=== PATIENT | female | born 1975 | race Caucasian/White ===

== ENCOUNTER 2017-10-18 14:05 | Inpatient (IN) ==
[2017-10-18] MEDS ORDERED: Ondansetron 4 MG/2 ML VIAL IVP PRN (14:43)
[2017-10-18] MEDS ORDERED: Naloxone 0.4 MG/ML INJ IVP PRN (14:43)
[2017-10-18] MEDS ORDERED: *HR* Nalbuphine 20 MG/ML AMPUL IVP PRN (14:43)
[2017-10-18] MEDS ORDERED: Famotidine 20 MG/2 ML VIAL IVP PRN (14:43)
[2017-10-18] MEDS ORDERED: Ringers Solution, Lactated 1,000 ML IVC SCH (14:45)
[2017-10-18 15:22] LABS: Basophils % 0.4 %; Eosinophils % 0.6 %; Hemoglobin 11.5 g/dL (11.5-15.4); Immature Granulocytes % 0.3 % (0-4); Lymphocytes # 1.5 K/mcL (0.6-4.6); Lymphocytes % 21.6 %; Mean Corpuscular HGB Conc 32.9 g/dL (31.6-35.5); Mean Corpuscular Hemoglobin 28.3 pg (28.0-33.3); Mean Corpuscular Volume 86.2 fL (83.0-100.0); Mean Platelet Volume 10.6 fL (9.4-12.4); Monocytes # 0.5 K/mcL (0.0-1.3); Monocytes % 6.8 %; Neutrophils # 4.9 K/mcL (1.6-8.9); Platelet Count 236 K/mcL (140-400); Red Blood Count 4.06 M/mcL (3.82-4.97); Red Cell Distribution Width 14.1 % (11.5-14.5); Segmented Neutrophils % 70.3 %
[2017-10-18 15:39] LABS: Amphetamine Screen,Urine Negative ng/mL (Cutoff=1000); Barbiturate Screen,Urine Negative ng/mL (Cutoff=200); Benzodiazepines Screen,Urine Negative ng/mL (Cutoff=200); Cannabinoid Screen,Urine Negative ng/mL (Cutoff = 50); Cocaine Screen,Urine Negative ng/mL (Cutoff= 300); Opiate Screen,Urine Negative ng/mL (Cutoff=300); Phencyclidine Screen,Urine Negative ng/mL (Cutoff=25)
[2017-10-18] MEDS ORDERED: miSOPROStol 25 MCG TABLET PO PRN (16:32)
--- NOTE | 2017-10-18 19:17 | OB/GYN History & Physical ---
Date of Encounter: 10/18/17 Time of Encounter: 18:36 Assessment and Plan (1) 38 weeks gestation of Current visit: Yes Status: Acute (2) IUGR (intrauterine growth restriction) Current visit: Yes Status: Acute Induction of labor with cytoec and cervical cornejo Cornejo placed at 1915. tracing reviewed with Dr. Avendano at 1900 Repositioning and starting of IV fluids VE /-2 (3) Obesity affecting in third trimester Current visit: Yes Status: Acute History of Present Illness Chief complaint: Induction of labor HPI: Ms. Evangelista is a 42 year old female admitted for induction of labor due to IUGR and abnormal dopplers. Obstetrical history of maternal obesity and AMA, decreased ability to move left knee, but has complete hip flexion. Pt desires BPS if C/S needed. Labs: A+, Rubella and varicella immune, GBS negative, all other serologies negative. Past Med Surg Social Fam HX - Past Medical History Psychiatric history: no psych history - Past Surgical History Surgical History: other - Social History Smoking Status: Never smoker Smokeless Tobacco Status: No Alcohol use: none Drug use: none - Family History Mother Age: 65 Living Status: Still Living Hx Family Cardiac Disorders: No Hx Family Respiratory Disorders: No Hx Family Cancer: No Hx Family GI Disorders: No Hx Family Genitourinary Disorders: No Hx Family Endocrine Disorder: No Hx Family Musculoskeletal Disorders: No Hx Family Neuromuscular Disorders: No Hx Family Neurologic Disorders: No Hx Family HEENT Disorders: No Hx Family Autoimmune Disorders: No Hx Family Reproductive Disorders: No Hx Family Psychosocial Disorders: No Hx Family Medical Disorders: No Obstetrical History - Pregnancies : 3 Para: 2 Term: 2 : 0 Ab's: 0 Livin Medications and Allergies Vitamins 1 / PO DAILY 10/18/17 [History] 3 Allergy/AdvReac Type Severity Reaction Status Date / Time alcohol Allergy Anaphylaxis Verified 10/18/17 16:31 ampicillin Allergy Anaphylaxis Verified 10/18/17 16:31 Penicillins Allergy Anaphylaxis Verified 10/18/17 16:31 Exam - Constitutional Constitutional: well developed, well nourished, no acute distress, obese - Neck Neck exam: full ROM - Lungs Respiratory exam: CTAB - Abdomen Abdomen: Present: gravid, non tender - Vagina Vagina: Present: normal moisture - Cervix Dilation: 1 Effacement: 70 Station: -2 - Uterus Uterus exam: Present: normal size, normal contour Results Result Diagrams: 10/18/17 15:10 Abnormal lab results Hct 35.0 % (35.3-44.9) L 10/18/17 15:10 All other labs normal. - VTE Reasons for not Prescribing Prophylaxis: Treatment not Indicated - Low risk for VTE
[2017-10-18] MEDS ORDERED: Oxytocin 20 units/ LR 1000 mL 20 UNIT/1,000 ML BAG IVC SCH (20:30)
--- NOTE | 2017-10-18 20:51 | Anesthesia Evaluation PreOp ---
Date of Encounter: 10/18/17 Time of Encounter: 20:49 - Past History Planned Operation: ELIAS Cardiac History: Denies any Significant Hx Pulmonary History: Denies Any Significant HX INFORMATION SYSTEMS SECURITY DEVELOPER History: Other (in remission since ) Other Medical History: Denies Any Significant HX Anesthesia History: No Prior Anesthetic Complications (denies personal h/o GA or NA complications) : Yes Test: Positive Alcohol Use: none Drug use: none Medications and Allergies Vitamins 1 / PO DAILY 10/18/17 [History] 3 Allergy/AdvReac Type Severity Reaction Status Date / Time alcohol Allergy Anaphylaxis Verified 10/18/17 16:31 ampicillin Allergy Anaphylaxis Verified 10/18/17 16:31 Penicillins Allergy Anaphylaxis Verified 10/18/17 16:31 - Meds/Allergy Pre-op Review Medications Reviewed: Yes Allergies Reviewed: Yes Beta Blockers on Current Med List: No Anesthesia Results - Labs 10/18/17 15:10 Anesthesia Exam 139/81, HR 71, RR 18 Height: 1.7m Weight: 123kg NPO (# of Hours): >8hrs Pain Scale: 3 Pain Scale Used: Numeric (1 - 10) - HEENT Pupil (Motor): Pupils equal Mallampati: II Teeth: Normal Oral Opening: Greater than 3 - INFORMATION SYSTEMS SECURITY DEVELOPER LOC: Oriented INFORMATION SYSTEMS SECURITY DEVELOPER Motor: Normal RUE, Normal LUE, Normal RLE, Normal LLE, Normal Face INFORMATION SYSTEMS SECURITY DEVELOPER Sensory: Normal: RUE, LUE, RLE, LLE, Face - Cardiac Rhythm: Regular Murmur: None JVD: No Carotid Bruit: No - Pulmonary Breath Sounds: bilateral Clear Respiratory Effort: Symmetrical Anesthesia Assess/Plan ASA Score: 3 (BMI > 40) Modified Russell Scale for Level of Consciousness: Cooperative, oriented, and tranquil Anesthetic Plan: Regional Autologous Blood: No Monitoring Plan: Standard Monitors Recovery Plan: Other
[2017-10-18] MEDS ORDERED: Bupivacaine-MPF 0.25% 10 ML VIAL EP ONE (20:57)
[2017-10-18] MEDS ORDERED: *HR* FentaNYL (PF) 100 MCG/2 ML VIAL EP ONE (20:57)
[2017-10-18] MEDS ORDERED: Epidural Premix (fent/bupiv) 110 ML EP SCH (21:00)
[2017-10-18] MEDS ORDERED: Bupivacaine-MPF 0.25% 10 ML VIAL ONE (21:40)
[2017-10-18] MEDS ORDERED: Epidural Premix (fent/bupiv) 110 ML EP ONE (21:41)
--- NOTE | 2017-10-18 22:15 | Anesthesia Procedures ---
Date of Encounter: 10/18/17 Time of Encounter: 22:13 Procedures: Anesthesia - Epidural/Spinal Patient ID/Chart reviewed: Yes Patient examined: Yes OB Eval: Gestational age: 38 weeks 4 days OB Eval: : 3 OB Eval: Hx Para: 2 OB Eval: Dilated at (cm): 1 OB Eval: Contractions: Non-stressed pattern Consent Obtained: No Supplemental Oxygen: None/Room Air Site Prep: Aseptic Technique, Sterile prep and drape, Povidone-Iodine 1% Patient position: upright Local Anesthetic: Lidocaine 1% Amount of Local Anesthetic used: 3 Touhy Needle Gauge: 18 Touhy Needle Depth (cm): 9 Catheter Depth at Skin (cm): 14 Test Dose (1.5% Lido + Epi): Volume given (mls): 5 Test Dose Result: Negative Loading Dose: 0.25% Marcaine (mls): 5 Loading Dose: Fentanyl (mcg): 100 Loading Dose Administered: Thru Catheter Infusion Med: 0.125% Bupivacaine w/ 2 mcg/ml Fentanyl Infusion Rate (mls/hr): 14 (w/ demand bolus of 5mL q20min) Catheter Secured in Place: Tegaderm, Tape Interspace Used: L3-L4 Loss of Resistance (SANTOSH): Yes Blood: No CSF: No Paresthesia: No Procedure: successful on 1st attempt Vitals + FHT's: please see Natalie MACIAS's electronic records for VS entry
--- NOTE | 2017-10-18 22:17 | OB Labor Progress Note ---
Date of Encounter: 10/18/17 Time of Encounter: 22:09 Labor Progress Note - Subjective Subjective: Pt uncomfortable with contractions, getting epidural - Vital Signs Vital Signs: 130/69 - Cervix Cervix: cervical cornejo remains in place - Heart Tones Heart Tones: 125/moderate/+accels/- decels - Nul[place] Nulato: q2-4 - Plan Plan: Continue pitocin per policy Cervical cornejo remains in place Anticipate
[2017-10-19] MEDS ORDERED: EPHEDrine 50 MG/ML VIAL ONE (01:12)
[2017-10-19] MEDS ORDERED: *HR* Oxytocin 10 UNIT/ML VIAL IM ONE ×2 (01:12→01:53)
[2017-10-19] MEDS ORDERED: *HR* Succinylcholine 200 MG/10 ML VIAL IVP ONE (01:29)
[2017-10-19] MEDS ORDERED: Dexamethasone 4 MG/ML VIAL ONE (01:29)
[2017-10-19] MEDS ORDERED: *HR* Phenylephrine 10 MG/ML VIAL ONE (01:29)
[2017-10-19] MEDS ORDERED: Chloroprocaine/PF 20 ML VIAL INFILT ONE (01:29)
[2017-10-19] MEDS ORDERED: Ondansetron 4 MG/2 ML VIAL ONE (01:29)
[2017-10-19] MEDS ORDERED: *HR* FentaNYL (PF) 100 MCG/2 ML VIAL ONE (01:29)
[2017-10-19] MEDS ORDERED: *HR* Propofol 200 MG/20 ML VIAL IVP ONE (01:29)
[2017-10-19] MEDS ORDERED: Morphine Sulfate/PF 5mg/10mL Vial ONE ×2 (01:29→02:08)
[2017-10-19] MEDS ORDERED: Ringers Solution, Lactated 1,000 ML ONE ×2 (01:30→23:24)
[2017-10-19] MEDS ORDERED: *HR* HYDROmorphone (PF) 1 MG/ML SYRINGE IVP PRN (01:46)
[2017-10-19] MEDS ORDERED: Naloxone 0.4 MG/ML INJ IVP PRN (01:46)
[2017-10-19] MEDS ORDERED: Ondansetron 4 MG/2 ML VIAL IVP PRN ×2 (01:46→04:51)
[2017-10-19] MEDS ORDERED: Clindamycin 900 MG/50 ML 900 MG/50 ML IV.SOLN IVPB ONE (02:00)
--- NOTE | 2017-10-19 02:11 | OB Labor Progress Note ---
Date of Encounter: 10/19/17 Time of Encounter: 00:40 Labor Progress Note - Subjective Subjective: Pt resting in bed with epidural. Called to room by RN stating cervical cornejo just came out and was requesting internals to be placed to allow patient comfortable positioning to allow for monitoring. - Cervix Cervix: / - Heart Tones Heart Tones: found in decel at 46 when FSE placed - Interventions Interventions: In room patient repositioned. Michael something suspicious on exam in vagina, a loop of tissue, called for speculum, RN unable to find heart tones, FSE applied heart tones 46. Decision made to move to OR for evaluation. called to OR.
--- NOTE | 2017-10-19 02:19 | OB/GYN Procedure Note ---
Section - Date of procedure: 10/19/17 Preop diagnosis: category 3 FHT tracing, desires sterilization, other (Funic cord) Post-op diagnosis: same Procedure: section, primary low transverse, bilateral tubal ligation Surgeon: Marion Avendano Estimated blood loss (cc): 400 Was there an seed laboratory assistant present: No Anesthesiologist: Carmen Leavitt Fork Operator: Ander Carpenter Anesthesia Type: General Disposition: L&D Recovery Room Specimens: Placenta, Cord segment, Right tube segment, Left tube segment - (s) Infant A Infant Delivery Date: 10/19/17 Delivery Time: 00:58 Presentation: vertex (funic presentation) Position: LOT Gender: Male Viability: Viable Pounds: 5 Ounces: 4 at 1 minute: 8 at 5 minutes: 9 Placenta: spontaneous, uterine exploration Cord: nuchal cord, 3 umbilical vessels, delivered through nuchal - Narrative Narrative: The patient was taken to the operating room and prepped with Betadine and draped in the usual sterile fashion. Emergency timeout was completed. She was given general anesthesia after it was determined that the epidural bolus was not adequate for abdominal surgery. After skin testing and prior to the general anesthesia having taken effect, the skin was injected with 1% lidocaine with epinephrine 20 mL prior to the initial skin incision. A Pfannenstiel skin incision was sharply dissected down to the fascia. The fascia was sharply dissected with scalpel in the midline and bluntly extended bilaterally. The rectus muscles were bluntly bisected and the peritoneum was bluntly entered. The incision was then bluntly extended. Bladder blade was placed to protect the bladder. A low transverse incision was then made with the scalpel, above the bladder reflection, down to the amnion and bluntly extended bilaterally. The amnion was then entered with Allis clamps. The vigorous infant was then delivered and bulb suctioned on the operating field. The cord was clamped and cut and the was handed to the nursery care team. Cord segment was obtained for gases, need for which would be determined later. The placenta was delivered spontaneous and intact. It was sent to pathology. The uterine cavity was digitally inspected and noted to be free of any retained products of conception. The uterine cavity is wiped clean with a moist lap sponge. Clamps were placed on the uterine incision. The incision was then closed using 0 Vicryl suture in a running locking fashion. This incision was then closed with a second 0 Vicryl suture in an imbricating fashion. Good hemostasis was noted. Tubes and ovaries were inspected and found to be grossly normal. The left fallopian tube was identified along the fimbriated end, grasped with the Evelina clamp and doubly ligated with O-plain suture. The loop of tube was excised with Metzenbaum scissors. Tubal lumens were identified to be hemostatic bilaterally. This was repeated for the patient's right side. Good hemostasis was noted. The abdomen was then irrigated copiously with sterile water. Peritoneal edges and rectus muscles were inspected and good hemostasis was achieved. The fascia was closed using an 0 PDS loop in a running nonlocking fashion. Subcutaneous tissues tissue were irrigated with sterile water and hemostasis was achieved. The subcutaneous layer was closed with 3-0 Monocryl in a running nonlocking fashion. The skin was closed with 4-0 Vicryl in a subcuticular fashion. P Randy dressing was placed. All sponge and instrument counts were correct at the end of the procedure. Kumari was noted to be draining clear yellow urine at the end of the procedure. Attention was then placed to the vagina and cervix where there was a question of if there was a laceration or septum. Speculum exam revealed normal anatomy. It was then suspected that a umbilical cord may have been appreciated prior to surgery. Patient was then extubated and taken to recovery room in stable condition
--- NOTE | 2017-10-19 02:26 | Anesthesia Evaluation Post Op ---
Date of Encounter: 10/19/17 Time of Encounter: 02:25 - Vital Signs Vital Signs: 147/80, HR 84, SpO2 95%, T97.4F, RR 18 - Lungs Lungs: Clear Ascult./Percussion - Airway Airway: Non-obstructed - Cardiovascular Regular Rate - Mental Status Mental Status: Alert & Oriented, Answers Appropriately - Pain Pain Scale: 0 Pain Scale used: Numeric (1 - 10) - Nausea Vomiting Nausea Vomiting: Not Present - Hydration Hydration: NPO, Kumari catheter - Discharge PostOp Status: Transfer Patient to floor
[2017-10-19] MEDS ORDERED: Gentamicin 430 MG in 0.9 % Sodium Chloride 100 ML IVPB SCH (03:00)
[2017-10-19] MEDS ORDERED: *HR* HYDROmorphone 20 MG/20 ML PCA IVC PRN (04:51)
[2017-10-19] MEDS ORDERED: Metoclopramide 10 MG/2 ML VIAL IVP PRN (04:51)
[2017-10-19] MEDS ORDERED: Oxytocin 20 units/ LR 1000 mL 20 UNIT/1,000 ML BAG IVC SCH (04:51)
[2017-10-19] MEDS ORDERED: Simethicone 80 MG TAB.CHEW PO PRN (04:51)
[2017-10-19] MEDS ORDERED: Sennosides 8.6 MG TABLET PO PRN (04:51)
[2017-10-19] MEDS: Clindamycin 900 MG/50 ML 900 MG/50 ML IV.SOLN IVPB SCH ×3 (08:12→23:36)
[2017-10-19] MEDS: Prenatal Vit/FA 1 EACH TABLET PO SCH (08:14)
[2017-10-19] MEDS ORDERED: Prenatal Vit/FA 1 EACH TABLET PO SCH (09:00)
[2017-10-19] MEDS: Ibuprofen 600 MG TABLET PO SCH ×2 (13:02→19:18)
[2017-10-19] MEDS: *HR* OxyCODONE/APAP 5/325 TABLET PO PRN ×2 (14:54→20:24)
[2017-10-20] MEDS: Ibuprofen 600 MG TABLET PO SCH ×4 (00:49→17:54)
[2017-10-20] MEDS: *HR* OxyCODONE/APAP 5/325 TABLET PO PRN ×3 (00:49→21:31)
[2017-10-20] MEDS ORDERED: Gentamicin 430 MG in 0.9 % Sodium Chloride 100 ML IVPB SCH (03:00)
[2017-10-20] MEDS ORDERED: Lidocaine -MPF 1% 5 ML AMPUL ONE (03:54)
[2017-10-20 07:57] LABS: Basophils % 0.2 %; Eosinophils # 0.1 K/mcL (0.0-0.6); Eosinophils % 1.5 %; Hematocrit 26.7 % (35.3-44.9); Immature Granulocytes % 0.4 % (0-4); Lymphocytes # 2.1 K/mcL (0.6-4.6); Lymphocytes % 24.9 %; Mean Corpuscular HGB Conc 32.6 g/dL (31.6-35.5); Mean Corpuscular Hemoglobin 28.5 pg (28.0-33.3); Mean Corpuscular Volume 87.5 fL (83.0-100.0); Mean Platelet Volume 10.4 fL (9.4-12.4); Monocytes # 0.6 K/mcL (0.0-1.3); Monocytes % 7.6 %; Neutrophils # 5.4 K/mcL (1.6-8.9); Platelet Count 173 K/mcL (140-400); Red Blood Count 3.05 M/mcL (3.82-4.97); Red Cell Distribution Width 14.6 % (11.5-14.5); Segmented Neutrophils % 65.4 %
[2017-10-20 08:00] LABS: Hemoglobin 8.7 g/dL (11.5-15.4)
--- NOTE | 2017-10-20 08:19 | OB/GYN Progress Note ---
Date of Encounter: 10/20/17 Time of Encounter: 08:17 - Assessment and Plan (1) Status post section Current Visit: Yes Status: Acute Continue routine /postop care (2) Status post tubal ligation Current Visit: Yes Status: Acute Continue routine postop care (3) Breast feeding status of mother Current Visit: Yes Status: Acute support prn Subjective - Subjective Principal diagnosis: / day 1 primary c/s for nonreassuring heart tones Interval history: Patient resting in bed. Reports pain is tolerable. Patient voiding without difficulty. Patient reports: appetite normal, voiding normally, pain well controlled, ambulating normally Gardner: doing well, nursing well Objective - Vital Signs Latest vital signs: Vital Signs Temp Pulse Resp BP Pulse Ox 10/20/17 07:55 98.2 F 80 16 109/71 10/20/17 00:35 98.0 F 93 16 104/71 95 10/19/17 20:16 98.0 F 90 16 115/79 96 10/19/17 16:04 97.9 F 81 16 109/73 10/19/17 11:56 97.8 F 94 16 112/77 Intake and Output 10/19/17 10/20/17 10/20/17 23:59 07:59 15:59 Intake Total 250 / 250 460.75 / 460.75 Output Total 100 / 100 100 / 100 Balance 150 / 150 360.75 / 360.75 Intake: IV Fluids 50 / 50 160.75 / 160.75 Cleocin Premix 900 MG/50 ML 900 50 / 50 50 / 50 mg In 50 ml @ 50 mls/hr IVPB Q8HR MARIKA Rx#:[id number] Garamycin 430 MG In 0.9 % 110.75 / 110.75 Sodium Chloride 100 ML @ 100 mls/hr IVPB Q24H MARIKA Rx#: [id number] Oral 200 / 200 300 / 300 Output: Urine 100 / 100 100 / 100 Other: Weight 123.1 kg Patient Weight 10/20/17 23:59 Weight 123.1 kg - Exam Lungs: bilateral: normal Chest: Normal S1, Normal S2 Extremities: Present: normal Abdomen: Present: normal appearance, soft, other (bruiding noted below Micheal dressing) Incision: Present: normal, dry, dressed (Micheal dressing) Uterus: Present: normal, firm - Labs Labs: Laboratory Results - last 24 hr 10/19/17 10/20/17 13:45 07:32 WBC 8.3 RBC 3.05 L Hgb 8.7 L D Hct 26.7 L MCV 87.5 MCH 28.5 MCHC 32.6 RDW 14.6 H Plt Count 173 MPV 10.4 Immature Gran % 0.4 Seg Neutrophils % 65.4 Lymphocytes % 24.9 Monocytes % 7.6 Eosinophils % 1.5 Basophils % 0.2 Neutrophils # 5.4 Lymphocytes # 2.1 Monocytes # 0.6 Eosinophils # 0.1 Basophils # 0.0 Random Gentamicin 1.2
[2017-10-20] MEDS: metroNIDAZOLE 500 MG TABLET PO SCH ×2 (08:45→21:31)
[2017-10-20] MEDS: Azithromycin 250 MG TABLET PO SCH (08:45)
[2017-10-20] MEDS: Prenatal Vit/FA 1 EACH TABLET PO SCH (08:45)
[2017-10-20] MEDS ORDERED: Aminoglycoside Consult 1 EACH MC ONE (12:14)
[2017-10-21] MEDS: Clindamycin 900 MG/50 ML 900 MG/50 ML IV.SOLN IVPB SCH
[2017-10-21] MEDS: Ibuprofen 600 MG TABLET PO SCH (06:19)
--- NOTE | 2017-10-21 07:57 | Discharge Summary ---
Date of Encounter: 10/21/17 Time of Encounter: 07:51 - Discharge Diagnosis (1) Status post section Priority: Primary Status: Acute Comments: Continue routine pospartum care discharge home today follow up with Dr. Avendano in 2 weeks for incision check (2) Status post tubal ligation Priority: Secondary Status: Acute Comments: continue routine postop care (3) Breast feeding status of mother Priority: Secondary Status: Acute Comments: support prn (4) anemia Priority: Secondary Status: Acute Comments: continue ferrous sulfate daily - Discharge Medications Prescriptions: OxyCODONE/APAP 5/325 [Percocet 5/325 MG] 1 each PO Q4HR PRN #30 tablet PRN Reason: Moderate pain 4-6 Ibuprofen [Motrin] 600 mg PO Q6HR #60 tablet Azithromycin [Zithromax] 500 mg PO DAILY #6 tablet Breast Pump [BREAST PUMP] 1 each .ROUTE AD #1 each Docusate [Colace] 100 mg PO BID #60 capsule Ferrous Sulfate 325 mg PO DAILY #30 tablet metroNIDAZOLE [Flagyl] 500 mg PO BID 6 Days #12 tablet Home Medications: Vitamins 1 / PO DAILY 10/18/17 [History] Azithromycin [Zithromax] 500 mg PO DAILY #6 tablet 10/21/17 [Rx] Breast Pump [BREAST PUMP] 1 each .ROUTE AD #1 each 10/21/17 [Rx] Docusate [Colace] 100 mg PO BID #60 capsule 10/21/17 [Rx] Ferrous Sulfate 325 mg PO DAILY #30 tablet 10/21/17 [Rx] Ibuprofen [Motrin] 600 mg PO Q6HR #60 tablet 10/21/17 [Rx] OxyCODONE/APAP 5/325 [Percocet 5/325 MG] 1 each PO Q4HR PRN #30 tablet 10/21/17 [Rx] metroNIDAZOLE [Flagyl] 500 mg PO BID 6 Days #12 tablet 10/21/17 [Rx] Allergies/Adverse Reactions: 3 Allergy/AdvReac Type Severity Reaction Status Date / Time alcohol Allergy Anaphylaxis Verified 10/18/17 16:31 ampicillin Allergy Anaphylaxis Verified 10/18/17 16:31 Penicillins Allergy Anaphylaxis Verified 10/18/17 16:31 Data Procedures and tests throughout hospitalization: Laboratory Tests 10/18/17 10/18/17 10/19/17 15:10 15:10 13:45 WBC 6.9 RBC 4.06 Hgb 11.5 Hct 35.0 L MCV 86.2 MCH 28.3 MCHC 32.9 RDW 14.1 Plt Count 236 MPV 10.6 Immature Gran % 0.3 Seg Neutrophils % 70.3 Lymphocytes % 21.6 Monocytes % 6.8 Eosinophils % 0.6 Basophils % 0.4 Neutrophils # 4.9 Lymphocytes # 1.5 Monocytes # 0.5 Eosinophils # 0.0 Basophils # 0.0 Random Gentamicin 1.2 Urine Opiates Screen Negative Ur Barbiturates Screen Negative Ur Phencyclidine Scrn Negative Ur Amphetamines Screen Negative U Benzodiazepines Scrn Negative Urine Cocaine Screen Negative U Marijuana (THC) Screen Negative 10/20/17 07:32 WBC 8.3 RBC 3.05 L Hgb 8.7 L D Hct 26.7 L MCV 87.5 MCH 28.5 MCHC 32.6 RDW 14.6 H Plt Count 173 MPV 10.4 Immature Gran % 0.4 Seg Neutrophils % 65.4 Lymphocytes % 24.9 Monocytes % 7.6 Eosinophils % 1.5 Basophils % 0.2 Neutrophils # 5.4 Lymphocytes # 2.1 Monocytes # 0.6 Eosinophils # 0.1 Basophils # 0.0 Random Gentamicin Urine Opiates Screen Ur Barbiturates Screen Ur Phencyclidine Scrn Ur Amphetamines Screen U Benzodiazepines Scrn Urine Cocaine Screen U Marijuana (THC) Screen Labs on day of discharge: Labs from last 24 hours 10/20/17 07:32 WBC 8.3 RBC 3.05 L Hgb 8.7 L D Hct 26.7 L MCV 87.5 MCH 28.5 MCHC 32.6 RDW 14.6 H Plt Count 173 MPV 10.4 Immature Gran % 0.4 Seg Neutrophils % 65.4 Lymphocytes % 24.9 Monocytes % 7.6 Eosinophils % 1.5 Basophils % 0.2 Neutrophils # 5.4 Lymphocytes # 2.1 Monocytes # 0.6 Eosinophils # 0.1 Basophils # 0.0 Date of admission: 10/18/17 14:05 Primary care physician: PCP NONE Discharging clinician: Noris Abad Anticipated date of discharge: 10/21/17 - Patient Status Disposition: Home, Self-Care Condition: Good Functional capacity at discharge: independent ambulation - Discharge Instructions Follow Up With: NONE,PCP [Primary Care Provider] - Marion Avendano MD [Partnered Physician] - - Diet and Activity Activity: resume usual activities as tolerated Diet: regular diet Hospital Course Reason for admission: induction of labor Delivery: section Episiotomy: none Laceration: none Other procedures: tubal ligation complications: none Discharge diagnosis: IUP at term delivered baby: male (breast feeding) Time Attestation: Total time spent providing and/or coordinating discharge services: Time Spent: Less than 30 minutes - VTE Reasons for not Prescribing Prophylaxis: Treatment not Indicated - Low risk for VTE Documentation of Mechanical Device: Intermittent pneumatic compression device Exam - Constitutional Vitals: Temp Pulse Resp BP Pulse Ox 98.0 F 98 16 126/84 96 10/20/17 21:07 10/20/17 21:07 10/20/17 21:07 10/20/17 21:07 10/20/17 21:07 General appearance IM: A&O X 3, obese - Respiratory Respiratory exam: Present: CTAB - Cardiovascular Cardiovascular exam IM: Present: RRR, +S1, +S2 - GI/Abdominal GI/Abdominal exam IM: normal bowel sounds, soft Incision: dressed (NUPUR dressing with dried blood.) - Rectal Rectal exam: deferred - Uterine Tone: Firm Uterus Position: 1 Finger Below Umbilicus - Extremities Exam Extremities exam IM: Present: full ROM, normal capillary refill, pedal edema, warm - Neurological Exam Neurological exam: alert, oriented X3, reflexes normal
[2017-10-21 08:21] VITALS: BP 110/76
[2017-10-21] MEDS: Azithromycin 250 MG TABLET PO SCH (09:24)
[2017-10-21] MEDS: metroNIDAZOLE 500 MG TABLET PO SCH (09:24)
[2017-10-21] MEDS: Prenatal Vit/FA 1 EACH TABLET PO SCH (09:25)
[2017-10-21] MEDS: *HR* OxyCODONE/APAP 5/325 TABLET PO PRN (09:25)
== END 2017-10-21 12:15 | disposition home or self-care (01) | DRG 540 ==
LOC: 1NENULAB → OBSVTOIN 14:05 → 1NENUOBS 10-19 04:22
PROVIDERS: ADMIT Obstetrics & Gynecology; ATTEND Obstetrics & Gynecology